=== PATIENT | male | born 1950 ===

== ENCOUNTER 2017-06-10 08:45 | Emergency (ER) | payer MEDICARE, MEDICAID ==
[2017-06-10 09:03] VITALS: O2SAT 98
[2017-06-10 09:46] LABS: URINE BILIRUBIN NEGATIVE (NEGATIVE); URINE BLOOD NEGATIVE (NEGATIVE); URINE CLARITY Clear (Clear); URINE COLOR Yellow (YELLOW); URINE GLUCOSE (UA) NORMAL (Normal); URINE LEUKOCYTE ESTERASE NEG Leu/uL (Negative); URINE NITRATE NEGATIVE (NEGATIVE); URINE PROTEIN NEGATIVE (NEGATIVE); URINE UROBILINOGEN NORMAL mg/dL (0.2-1.0)
--- NOTE | 2017-06-10 11:02 | C.PDOC ---
History Of Present Illness 67 year old male presents to the ED for evaluation of burning upon urination which began 3 months ago. Patient reports urinary frequency and reports he is unable to fully empty his bladder when he uses the bathroom. Patient denies fever, chills, back pain, hematuria, nausea, vomiting. Time Seen by Provider: 06/10/17 09:21 Chief Complaint (Nursing): Abdominal Pain History Per: Patient History/Exam Limitations: no limitations Onset/Duration Of Symptoms: Other (3 months ) Current Symptoms Are (Timing): Still Present Associated Symptoms: Urinary Symptoms (burning upon urination, urinary frequency ). denies: Fever, Chills, Nausea, Vomiting Additional History Per: Patient Past Medical History Reviewed: Historical Data, Nursing Documentation, Vital Signs Vital Signs: Last Vital Signs Temp 98.2 F 06/10/17 11:11 Pulse 64 06/10/17 11:11 Resp 18 06/10/17 11:11 BP 170/100 H 06/10/17 11:11 Pulse Ox 98 06/12/17 14:44 - Medical History PMH: HTN Surgical History: No Surg Hx Family History: States: Unknown Family Hx - Social History Hx Alcohol Use: No Hx Substance Use: No Review Of Systems Constitutional: Negative for: Fever, Chills Gastrointestinal: Negative for: Nausea, Vomiting Genitourinary: Positive for: Frequency, Other (burning upon urination ). Negative for: Hematuria Musculoskeletal: Negative for: Back Pain Physical Exam - Physical Exam Appears: Non-toxic, No Acute Distress Skin: Normal Color, Warm, Dry Head: Atraumatic, Normacephalic Eye(s): bilateral: Normal Inspection, PERRL, EOMI Oral Mucosa: Moist Neck: Normal ROM, Supple Chest: Symmetrical, No Deformity, No Tenderness Cardiovascular: Rhythm Regular, No Murmur Respiratory: Normal Breath Sounds, No Rales, No Rhonchi, No Wheezing Gastrointestinal/Abdominal: Soft, No Tenderness, No Guarding, No Rebound Extremity: Normal ROM, Capillary Refill (less than 2 seconds ), No Swelling Neurological/Psych: Oriented x3, Normal Speech, Normal Cognition, Normal Motor Gait: Steady ED Course And Treatment O2 Sat by Pulse Oximetry: 98 (on RA) Pulse Ox Interpretation: Normal Medical Decision Making Medical Decision Making: Progress: UA ordered and reviewed. UA is normal and patient is asymptomatic at this time and resting comfortably. Disposition - Disposition Referrals: [facility] [Outside] Elijah Cassidy MD [Staff Provider] - Disposition: HOME/ ROUTINE Disposition Time: 10:59 Condition: GOOD Additional Instructions: Follow up with the medical doctor within 1-2 days. Return if worsened. Prescriptions: Tamsulosin HCl [Flomax] 0.4 mg PO DAILY #20 cap.er.24h Instructions: Benign Prostatic Hyperplasia (Enlarged Prostate) Forms: Upstream (Turkish) Print Language: URUGUAYAN - Clinical Impression Clinical Impression: BPH (benign prostatic hyperplasia) - PA / [employer]EE[employer]PER[employer] / Resident Statement MD/DO has reviewed & agrees with the documentation as recorded. - Scribe Statement The provider has reviewed the documentation as recorded by the Scribe (Stacy Sam) All medical record entries made by the Scribe were at my direction and personally dictated by me. I have reviewed the chart and agree that the record accurately reflects my personal performance of the history, physical exam, medical decision making, and the department course for this patient. I have also personally directed, reviewed, and agree with the discharge instructions and disposition.
[2017-06-10 11:13] VITALS: BP 170/100; PULSE 64; RESP 18; TEMP 98.2
== END 2017-06-10 11:12 | disposition home or self-care (01) ==
LOC: C.ER 08:45
DX: N40.0 Benign prostatic hyperplasia without lower urinary tract symptoms (principal); I10 Essential (primary) hypertension

== ENCOUNTER 2017-08-06 07:42 | Day surgery (SDC) | payer MEDICARE, MEDICAID ==
[2017-08-06 08:05] VITALS: BMI 25.8
[2017-08-06] MEDS ORDERED: Lactated Ringer's 500 ML IV ONE (10:14)
[2017-08-06 10:18] VITALS: O2SAT 100
[2017-08-06] MEDS ORDERED: Propofol 10 mg/ml Inj (20 ML) ONE (10:18)
[2017-08-06 11:03] VITALS: RESP 16; TEMP 97
[2017-08-06 11:28] VITALS: BP 156/97; PULSE 62
== END 2017-08-06 11:55 | disposition home or self-care (01) ==
LOC: C.ENDO 07:42
PROVIDERS: ATTEND Internal Medicine Gastroenterology
DX: Z12.11 Encounter for screening for malignant neoplasm of colon (principal); D12.4 Benign neoplasm of descending colon; K64.1 Second degree hemorrhoids; I10 Essential (primary) hypertension; N40.0 Benign prostatic hyperplasia without lower urinary tract symptoms
CPT/HCPCS: 45380; 88305; J2704; J7120